=== PATIENT | female | born 1995 | race Caucasian/White ===

== ENCOUNTER 2020-04-20 22:35 | Emergency (ER) | payer OTHER ==
[~2020-04-20] VITALS: Ht 154.9 cm; Wt 72.7 kg
[2020-04-20 22:43] VITALS: Ht 154.9 cm; Wt 72.7 kg
[2020-04-20 23:41] VITALS: BP 146/88
== END 2020-04-20 23:41 | disposition home or self-care (01) ==
LOC: ED 22:35
DX: R10.31 Right lower quadrant pain (principal); J45.909 Unspecified asthma, uncomplicated; Z98.890 Other specified postprocedural states